=== PATIENT | female | born 1950 | race Hispanic/Latino ===

== ENCOUNTER → 2021-05-07 | Day surgery (SDC) | payer MEDICARE ==
[2021-05-06 13:18] LABS: BASOPHILS % 0.4 % (0.0-1.0); EOSINOPHILS # (AUTO) 0.2 (0.0-0.4); EOSINOPHILS % 3.3 % (0.0-6.0); HEMATOCRIT 40.8 % (34.2-44.1); HEMOGLOBIN 12.9 g/dL (12.0-16.0); LYMPHOCYTES # (AUTO) 1.7 (1.0-3.2); LYMPHOCYTES % 32.2 % (18.0-39.1); MEAN CORPUSCULAR HEMOGLOBIN 28.7 pg (28-32); MEAN CORPUSCULAR HGB CONC 31.6 g/dL (31-35); MEAN CORPUSCULAR VOLUME 90.9 fL (81-99); MONOCYTES # (AUTO) 0.6 (0.2-0.8); MONOCYTES % 11.8 % (4.4-11.3); NEUTROPHILS # (AUTO) 2.7 (2.1-6.9); NEUTROPHILS % 51.7 % (38.7-80.0); PLATELET COUNT 181 x10e3/uL (140-360); RED BLOOD COUNT 4.49 x10e6/uL (3.6-5.1); RED CELL DISTRIBUTION WIDTH 14.4 % (11.7-14.4)
[~2021-05-07] MED LIST: ACETAMINOPHEN 1000 MG/100 ML 100 ML IV ONE; ALLOPURINOL300 MG PO; ASPIRIN CHEW81 MG PO; ASPIRIN325 MG PO; ATORVASTATIN CA20 MG PO; CARVEDILOL12.5 MG PO; CENTRUM SILVER1 EAC3 PO; FENOFIBRATE160 MG PO; FISH OIL 1,2001 EACH PO; FUROSEMIDE40 MG PO; GLIMEPIRIDE2 MG PO; GLIMEPIRIDE4 MG PO; ISOSORBIDE MONO30 MG PO; KOMBIGLYZE XR1 EAC1 PO; LEVEMIR 3M100 UNITS/; LEVOTHYROXINE50 MCG PO; LISINOPRIL10 MG PO; METFORMIN HCL500 MG PO; NITROSTAT0.4 MG SL; NOVOLIN N100 UNIT/1 SC; NOVOLOG100 UNIT/1; NOVOLOG100 UNIT/1 SQ; NOVOLOG100 UNITS1 SQ; OR PHACO EYE KIT ONE; PLAVIX75 MG PO; POVIDONE IODINE 5% (OPTH) 30 ML BTL ONE; PRAVASTATIN SOD40 MG PO; PREOP PHACO EYE KIT ONE; SPIRONOLACTONE25 MG PO
[2021-05-07 15:55] VITALS: BP 148/60
== END | disposition home or self-care (01) ==
LOC: OR 12:04
PROVIDERS: ATTEND Ophthalmology
DX: H25.12 Age-related nuclear cataract, left eye (principal); I25.810 Atherosclerosis of coronary artery bypass graft(s) without angina pectoris; I10 Essential (primary) hypertension; E03.9 Hypothyroidism, unspecified; E11.9 Type 2 diabetes mellitus without complications; E66.9 Obesity, unspecified; Z01.812 Encounter for preprocedural laboratory examination; Z20.822 Contact with and (suspected) exposure to COVID-19; Z79.82 Long term (current) use of aspirin; Z79.02 Long term (current) use of antithrombotics/antiplatelets; Z79.899 Other long term (current) drug therapy; Z68.30 Body mass index [BMI] 30.0-30.9, adult; Z95.810 Presence of automatic (implantable) cardiac defibrillator; Z95.1 Presence of aortocoronary bypass graft; Z95.5 Presence of coronary angioplasty implant and graft
CPT/HCPCS: 36415 ×2; 66984; 82948; 85025; J0131; U0002; V2632

== ENCOUNTER → 2022-07-03 | Outpatient (CLI) | payer MEDICARE ==
[~2022-07-03] MED LIST changes: -ACETAMINOPHEN 1000 MG/100 ML 100 ML IV ONE; -OR PHACO EYE KIT ONE; -POVIDONE IODINE 5% (OPTH) 30 ML BTL ONE; -PREOP PHACO EYE KIT ONE
== END ==
LOC: RAD 13:27
PROVIDERS: ATTEND Internal Medicine
DX: J41.0 Simple chronic bronchitis (principal)
CPT/HCPCS: 71046